=== PATIENT | female | born 1975 | race Caucasian/White ===

== ENCOUNTER 2018-01-09 20:14 | Emergency (ER) | payer MEDICAID ==
--- NOTE | 2018-01-09 20:47 | Emergency Department Record ---
History of Present Illness - General Chief Complaint: Abdominal Pain Stated Complaint: ABDOMINAL/BACK PAIN Time Seen by Provider: 01/09/18 20:43 Source: Patient Mode of Arrival: Wheelchair Limitations: No limitations - History of Present Illness Initial Comments: The patient is here due to abd pain for 5 days. The pain is in the L lower quad and is sharp, stabbing, and severe. She feels like she has to urinate or have a BM. The patient has had kidney stones similar to this in the past. The pain did get very severe this afternoon and now she is quite nauseated. There has been no hx of any fever, hematuria, or vaginal discharge. She has had a DWAYNE in the past. MD Complaint: Abdominal pain Onset/Timin -: Days(s) Location: Suprapubic, Other Radiation: Other Migration to: L Flank Severity scale (1-10): 10 Quality: Sharp Consistency: Constant, Getting worse Improves With: Nothing Worsens With: Bowel movement, Movement Context: Other Associated Symptoms: Chills, Diarrhea, Nausea, Vomiting - Related Data LMP (females 10-50): Unknown Patient : No Home Medications Medication Instructions Recorded Confirmed Last Taken Albuterol Sulfate [Proair Hfa] 1 - 2 puff IH .EVERY 4-6 HOURS PRN 01/09/1801/09 Unknown Citalopram Hydrobromide [Celexa] 20 mg PO DAILY 01/09/18 01/09/18 Unknown Diazepam 5 mg PO DAILY 01/09/18 01/09/18 Unknown Hydroxyzine HCl [Atarax] 25 mg PO ASDIR PRN 01/09/18 01/09/18 Unknown Lamotrigine [Lamictal] 100 mg PO DAILY 01/09/18 01/09/18 Unknown Trazodone HCl 50 mg PO QHS PRN 01/09/18 01/09/18 Unknown Previous Rx's Medication Instructions Recorded Hydrocodone/Acetaminophen [Neely 1 - 2 each PO .EVERY 4-6 HRS PRN 01/09/18 5-325 Tablet] #12 tablet Phenazopyridine HCl [Pyridium] 100 mg PO TID #6 tablet 01/09/18 Tamsulosin HCl [Flomax] 0.4 mg PO DAILY #7 cap.er.24h 01/09/18 Allergies Allergy/AdvReac Type Severity Reaction Status Date / Time ketorolac [From Toradol] Allergy HIVES Verified 01/09/18 22:13 promethazine HCl Allergy DIFFICULTY Verified 01/09/18 22:13 [From Phenergan] BREATHING Travel Screening - Travel/Exposure Within Last 30 Days Have you traveled within the last 30 days?: No - Travel Symptoms Symptom Screening: Headache, Weakness, Diarrhea Review of Systems Constitutional: Denies: Chills, Fever Eyes: Denies: Eye discharge ENT: Denies: Congestion Respiratory: Denies: Cough, Dyspnea Cardiovascular: Denies: Arrhythmia Past Medical History - SOCIAL HISTORY Smoking Status: Current every day smoker Alcohol Use: None Drug Use: Heavy Drug Use Detail:: Marijuana - RESPIRATORY Hx Respiratory Disorders: Yes Hx Asthma: Yes - CARDIOVASCULAR Hx Cardio Disorders: No - NEURO Hx Neuro Disorders: Yes Hx Headaches: Yes - GI Hx GI Disorders: No - Hx Genitourinary Disorders: No - ENDOCRINE Hx Endocrine Disorders: No - MUSCULOSKELETAL Hx Musculoskeletal Disorders: No - PSYCH Hx Psych Problems: No - HEMATOLOGY/ONCOLOGY Hx Hematology/Oncology Disorders: No Family Medical History Any Significant Family History?: No Physical Exam - General General Appearance: Alert, Oriented x3, Cooperative, Moderate distress (due to AP.) - Head Head exam: Atraumatic, Normocephalic, Normal inspection - Eye Eye exam: Normal appearance, PERRL, EOMI - Neck Neck exam: Normal inspection, Full ROM. negative: Tenderness - Respiratory Respiratory exam: Normal lung sounds bilaterally. negative: Respiratory distress - Cardiovascular Cardiovascular Exam: Regular rate, Normal rhythm, Normal heart sounds - GI/Abdominal GI/Abdominal exam: Soft, Tenderness (There is significant LLQ tenderness.). negative: Rebound, Rigid - Extremities Extremities exam: Normal inspection, Full ROM, Normal capillary refill. negative: Tenderness - Neurological Neurological exam: Alert, Normal gait, Oriented X3. negative: Abnormal gait, Motor sensory deficit Course Vital Signs 01/09/18 20:26 Temperature 98.4 F Pulse Rate 107 H Respiratory 24 Rate Blood Pressure 147/119 Pulse Ox 97 - Reevaluation(s) Reevaluation #1: The patient is doing better at this time but is still having some significant pain. Her BP and HR are improved and she clearly is more comfortable. 01/09/18 21:53 Reevaluation #2: The patient is feeling a good bit better but is still having some pain. We will give a 3rd dose of pain medicine and re-asses her pain shortly after. The patient is still having some bladder spasms. 01/09/18 22:53 Reevaluation #3: The patient is doing MUCH better at this time. Her pain is 95% resolved and her abdomen is very soft and nontender. She is to F/U with her Urologist at [facility] this week. She also understands the need to return for any worsening symptoms. 01/09/18 23:23 Medical Decision Making - Data Complexity MDM Data: Labs Ordered and/or Reviewed, X-Ray Ordered and/or Reviewed - Lab Data Result diagrams: 01/09/18 20:30 01/09/18 20:30 - Radiology Data Radiology results: Report reviewed (CT: 2 mm L UVJ stone with mild hydro.) Disposition Disposition: Discharge Clinical Impression: Renal colic on left side Disposition: Home, Self-Care Condition: (2) Stable Instructions: Renal Colic (ED) Additional Instructions: Please take the Neely and Flomax as directed along with the pyridium. Please see a Urologist at [facility] this week. Please return to the ER for any worsening pain, fever, or vomiting. Prescriptions: Hydrocodone/Acetaminophen [Neely 5-325 Tablet] 1 - 2 each PO .EVERY 4-6 HRS PRN #12 tablet PRN Reason: Pain Phenazopyridine HCl [Pyridium] 100 mg PO TID #6 tablet Tamsulosin HCl [Flomax] 0.4 mg PO DAILY #7 cap.er.24h Forms: Patient Portal Access Time of Disposition: 23:26 Quality - Quality Measures Quality Measures: N/A - Blood Pressure Screening View Details: Yes Does Patient Have Any of the Following: No Blood Pressure Classification: Hypertensive Reading Systolic Measurement: 147 Diastolic Measurement: 119 Screening for High Blood Pressure: < First Hypertensive BP, F/U Documented > [ G8950] First Hypertensive Follow-up Interventions: Referral to alternative/primary care provider.
[2018-01-09] MEDS ORDERED: ONDANSETRON HCL IV 4 MG/2 ML VIAL IV ONE (20:50)
[2018-01-09] MEDS ORDERED: 0.9 % SODIUM CHLORIDE 1,000 ML BAG IV ONE (20:50)
[2018-01-09] MEDS ORDERED: LORAZEPAM 2 MG/ML VIAL IV ONE (20:50)
[2018-01-09] MEDS ORDERED: HYDROMORPHONE HCL 2 MG/ML VIAL IVP ONE ×3 (20:51→22:51)
[2018-01-09 21:01] LABS: BASO % 0.6 % (0-6); EOS % 2.6 % (0-6); GRAN % 45.7 % (47-80); HEMATOCRIT 42.7 % (35.0-47.0); HEMOGLOBIN 14.6 gm/dl (11.6-16.0); LYMPH % 43.1 % (16-45); MEAN CORPUSCULAR HEMOGLOBIN 30.4 pg (27-33); MEAN CORPUSCULAR HGB CONC 34.2 g/dl (32-36); PLATELET COUNT 414 K/uL (130-400); RED CELL DISTRIBUTION WIDTH 14.1 % (11.5-14.5); WHITE BLOOD COUNT W/O DIFF 10.6 K/uL (4.2-12.2)
[2018-01-09 21:11] LABS: BLOOD UREA NITROGEN 9 mg/dL (6-20); CREATININE 0.9 mg/dL (0.5-0.9); EST GLOMERULAR FILTRATION RATE > 60 mL/min
[2018-01-09 21:14] LABS: GLUCOSE,RANDOM 131 mg/dL (74-109)
[2018-01-09] MEDS ORDERED: POTASSIUM CHLORIDE 20 MEQ TABLET PO ONE (21:26)
[2018-01-09] MEDS ORDERED: KETOROLAC 30 MG/ML VIAL IVP ONE (21:34)
[2018-01-09 22:16] LABS: URINE APPEARANCE CLEAR; URINE BILIRUBIN SMALL (NEGATIVE); URINE BLOOD MODERATE (NEGATIVE); URINE COLOR YELLOW; URINE GLUCOSE (UA) NEGATIVE (NEGATIVE); URINE KETONE TRACE (NEGATIVE); URINE LEUKOCYTE ESTERASE NEGATIVE (NEGATIVE); URINE NITRITE NEGATIVE (NEGATIVE); URINE UROBILINOGEN 0.2 E.U./dL (0.20 - 1.00)
[2018-01-09 22:22] LABS: URINE BACTERIA NONE SEEN; URINE EPITHELIAL CELLS 0 - 2 (FEW); URINE MUCUS LIGHT; URINE WBC 0 - 2 (0-2/hpf)
[2018-01-09 22:23] LABS: AMPHETAMINE SCREEN URINE NOT DETECTED; BARBITURATE SCREEN URINE NOT DETECTED; BENZODIAZEPINE SCREEN URINE DETECTED; COCAINE SCREEN URINE NOT DETECTED; METHADONE SCREEN URINE NOT DETECTED; METHAMPHETAMINE SCREEN NOT DETECTED; OPIATE SCREEN URINE DETECTED; OXYCODONE SCREEN URINE NOT DETECTED; PHENCYCLIDINE SCREEN URINE NOT DETECTED; PROPOXYPHENE SCREEN URINE NOT DETECTED; THC SCREEN URINE DETECTED; TRICYCLIC ANTIDEPRESSANT SCRN NOT DETECTED
[2018-01-09] MEDS ORDERED: TAMSULOSIN HCL 0.4 MG CAP.ER.24H PO ONE (22:24)
[2018-01-09] MEDS ORDERED: PHENAZOPYRIDINE HCL 95 MG TABLET PO ONE (22:55)
[2018-01-09] MEDS ORDERED: HYDROCODONE/APAP 5/325MG TABLET PO ONE (23:22)
--- NOTE | 2018-01-11 16:12 | CT SCAN REPORT ---
EXAM: CT SCAN ABDOMEN/PELVIS WO CONTRAST HISTORY: LOWER ABDOMINAL PAIN AND LEFT FLANK PAIN. TECHNIQUE: Standard CT imaging of the abdomen and pelvis was performed in the axial plane without contrast. Additional coronal and sagittal reformatted images were also performed. COMPARISON: None. FINDINGS: The lung bases are clear. The liver parenchyma is normal. The gallbladder is surgically absent. The biliary tree is normal. The pancreas, spleen, and adrenal glands are normal. The aorta is normal in caliber. There is no retroperitoneal lymphadenopathy. There is a 2 mm calculus within the left ureterovesical junction resulting in mild hydronephrosis. The kidneys and ureters are otherwise normal. The large and small bowel loops are normal. There is no pneumoperitoneum or ascites. The uterus is surgically absent. The abdominal wall is unremarkable. There are no acute osseous abnormalities. IMPRESSION: A 2 MM CALCULUS WITHIN THE LEFT URETEROVESICAL JUNCTION RESULTING IN MILD HYDRONEPHROSIS. JOB NUMBER: [id number] MTDD
== END 2018-01-09 23:30 | disposition home or self-care (01) ==
LOC: ER 20:14
DX: N13.2 Hydronephrosis with renal and ureteral calculous obstruction (principal); R11.2 Nausea with vomiting, unspecified; R19.7 Diarrhea, unspecified; F17.210 Nicotine dependence, cigarettes, uncomplicated; Z87.442 Personal history of urinary calculi
CPT/HCPCS: 99284 ×2; 96376; 96374; 96375; 96361; 85025; 80048; 81001; 80305; 74176; J2405; J1170; J2060; J7030

== ENCOUNTER 2018-08-09 13:18 | Emergency (ER) | payer BC, MEDICAID ==
--- NOTE | 2018-08-09 13:48 | Emergency Department Record ---
History of Present Illness - General Chief complaint: Extremity Problem Stated complaint: LT ARM PAIN SWELLING Time Seen by Provider: 08/09/18 13:36 Source: Patient Mode of Arrival: Ambulatory Limitations: No limitations - History of Present Illness Initial comments: pt fell osolitario lastpm. Onset/Timin -: Hour(s) Location: Left, Arm History of Same: No Severity scale (1-10): 8 Quality: Sharp Consistency: Constant, Getting worse Improves with: Immobilization Worsens with: Exertion, Palpation - Related Data Home Medications Medication Instructions Recorded Confirmed Last Taken Duloxetine HCl [Cymbalta] 20 mg PO ASDIR 08/09/18 08/09/18 Unknown Previous Rx's Medication Instructions Recorded Hydrocodone/Acetaminophen [[place] 1 each PO Q6HR #10 tablet 08/09/18 5-325 Tablet] Allergies Allergy/AdvReac Type Severity Reaction Status Date / Time ketorolac [From Toradol] Allergy HIVES Verified 08/09/18 13:24 promethazine HCl Allergy DIFFICULTY Verified 08/09/18 13:24 [From Phenergan] BREATHING Travel Screening - Travel/Exposure Within Last 30 Days Have you traveled within the last 30 days?: No - Travel/Exposure Within Last Year Have you traveled outside the [place] in the last year?: No - Additonal Travel Details Have you been exposed to anyone with a communicable illness?: No - Travel Symptoms Symptom Screening: None Review of Systems Reviewed: No additional complaints except as noted below Constitutional: Reports: As per HPI. Denies: Chills, Fever, Malaise, Night sweats, Weakness, Weight change Eyes: Reports: As per HPI. Denies: Eye discharge, Eye pain, Photophobia, Vision change ENT: Reports: As per HPI. Denies: Congestion, Dental pain, Ear pain, Epistaxis , Hearing loss, Throat pain Respiratory: Reports: As per HPI. Denies: Cough, Dyspnea, Hemoptysis, Stridor, Wheezes Cardiovascular: Reports: As per HPI. Denies: Arrhythmia, Chest pain, Dyspnea on exertion, Edema, Murmurs, Orthopnea, Palpitations, Paroxysmal nocturnal dyspnea, Rheumatic Fever, Syncope Endocrine: Reports: As per HPI. Denies: Fatigue, Heat or cold intolerance, Polydipsia, Polyuria Gastrointestinal: Reports: As per HPI. Denies: Abdominal pain, Constipation, Diarrhea, Hematemesis, Hematochezia, Melena, Nausea, Vomiting Genitourinary: Reports: As per HPI. Denies: Abnormal menses, Discharge, Dyspareunia, Dysuria, Frequency, Hematuria, Incontinence, Retention, Urgency Musculoskeletal: Reports: As per HPI. Denies: Arthralgia, Back pain, Gout, Joint swelling, Myalgia, Neck pain Skin: Reports: As per HPI. Denies: Bruising, Change in color, Change in hair/ nails, Lesions, Pruritus, Rash Neurological: Reports: As per HPI. Denies: Abnormal gait, Confusion, Headache, Numbness, Paresthesias, Seizure, Tingling, Tremors, Vertigo, Weakness Psychiatric: Reports: As per HPI. Denies: Anxiety, Auditory hallucinations, Depression, Homicidal thoughts, Suicidal thoughts, Visual hallucinations Hematological/Lymphatic: Reports: As per HPI. Denies: Anemia, Blood Clots, Easy bleeding, Easy bruising, Swollen glands Past Medical History - SOCIAL HISTORY Smoking Status: Current every day smoker Alcohol Use: Rare Drug Use: Occasional Drug Use Detail:: Marijuana - RESPIRATORY Hx Respiratory Disorders: Yes Hx Asthma: Yes - CARDIOVASCULAR Hx Cardio Disorders: No - NEURO Hx Neuro Disorders: Yes Hx Headaches: Yes - GI Hx GI Disorders: No Hx Celiac Disease: Yes Hx Reflux: Yes - Hx Genitourinary Disorders: No Hx Kidney Stones: Yes Comment:: renal stent placed and removed - ENDOCRINE Hx Endocrine Disorders: No - MUSCULOSKELETAL Hx Musculoskeletal Disorders: No - PSYCH Hx Psych Problems: No Hx Anxiety: Yes Hx Depression: Yes - HEMATOLOGY/ONCOLOGY Hx Hematology/Oncology Disorders: No Family Medical History Any Significant Family History?: Yes Hx Resp Disorders: Mother Physical Exam - General General Appearance: Alert, Oriented x3, Cooperative, No acute distress - Head Head exam: Normal inspection - Eye Eye exam: Normal appearance, PERRL, EOMI Pupils: Normal accommodation - ENT ENT exam: Normal exam, Mucous membranes moist, Normal external ear exam, Normal orophraynx, TM's normal bilaterally Ear exam: Normal external inspection. negative: External canal tenderness Nasal Exam: Normal inspection. negative: Discharge, Sinus tenderness Mouth exam: Normal external inspection, Tongue normal Teeth exam: Normal inspection. negative: Dental caries Throat exam: Normal inspection. negative: Tonsillar erythema, Tonsillar exudate - Neck Neck exam: Normal inspection, Full ROM. negative: Tenderness - Respiratory Respiratory exam: Normal lung sounds bilaterally. negative: Respiratory distress - Cardiovascular Cardiovascular Exam: Regular rate, Normal rhythm, Normal heart sounds - GI/Abdominal GI/Abdominal exam: Soft, Normal bowel sounds. negative: Tenderness - Rectal Rectal exam: Deferred - exam: Deferred - Extremities Extremities exam: Normal capillary refill, Tenderness, Other (snuffbox tenderness). negative: Normal inspection, Full ROM - Back Back exam: Reports: Normal inspection, Full ROM. Denies: Muscle spasm, Rash noted, Tenderness - Neurological Neurological exam: Alert, CN II-XII intact, Normal gait, Oriented X3 - Psychiatric Psychiatric exam: Normal affect, Normal mood - Skin Skin exam: Dry, Intact, Normal color, Warm Course Vital Signs 08/09/18 13:27 Temperature 97.9 F Pulse Rate 87 Respiratory 18 Rate Blood Pressure 121/87 Pulse Ox 97 Disposition Disposition: Discharge Clinical Impression: Radius distal fracture Qualifiers: Encounter type: initial encounter Fracture type: closed Fracture morphology: unspecified fracture morphology Laterality: left Qualified Code(s): S52.502A - Unspecified fracture of the lower end of left radius, initial encounter for closed fracture Disposition: Home, Self-Care Condition: (1) Good Instructions: Arm Fracture in Adults (ED) Additional Instructions: follow up with dr mendoza. return sooner if worse. ice and elevate Prescriptions: Hydrocodone/Acetaminophen [[place] 5-325 Tablet] 1 each PO Q6HR #10 tablet Referrals: RAJWINDER MENDOZA [DOCTOR OF OSTEOPATH] - [facility] [Provider Group] Forms: Patient Portal Access Quality - Quality Measures Quality Measures: N/A - Blood Pressure Screening Does Patient Have Any of the Following: No Blood Pressure Classification: Pre-Hypertensive BP Reading Systolic Measurement: 121 Diastolic Measurement: 87 Screening for High Blood Pressure: < Pre-Hypertensive BP, F/U Documented > [ G8950] Pre-Hypertensive Follow-up Interventions: Follow-up with rescreen every year.
[2018-08-09] MEDS ORDERED: HYDROCODONE/APAP 5/325MG TABLET PO ONE (14:33)
--- NOTE | 2018-08-10 12:18 | RADIOLOGY REPORT ---
EXAM: LEFT WRIST HISTORY: FALL, WRIST PAIN. TECHNIQUE: Four views of the left wrist were obtained. Comparison: None. FINDINGS: Subtle transverse lucency extending through the radial metaphysis, best seen on oblique and navicular views. No additional acute fracture is seen. Carpal bone alignment appears maintained. Mild arthrosis at the thumb carpal metacarpal joint. IMPRESSION: SUGGESTION OF AN ACUTE NONDISPLACED FRACTURE OF THE DISTAL RADIAL METAPHYSIS. JOB NUMBER: [id number] MTDD
== END 2018-08-09 15:05 | disposition home or self-care (01) ==
LOC: ER 13:18
DX: S52.502A Unspecified fracture of the lower end of left radius, initial encounter for closed fracture (principal); W19.XXXA Unspecified fall, initial encounter; F17.210 Nicotine dependence, cigarettes, uncomplicated
CPT/HCPCS: 99283

== ENCOUNTER 2018-10-24 06:42 | Emergency (ER) | payer MEDICAID ==
[2018-10-24 07:21] LABS: ABSOLUTE NEUTROPHIL COUNT 13.23; BASO % 0.4 % (0-6); EOS % 1.8 % (0-6); GRAN % 74.9 % (47-80); HEMATOCRIT 44.8 % (35.0-47.0); MEAN CELL VOLUME 88.2 fl (81-97); MEAN CORPUSCULAR HEMOGLOBIN 29.5 pg (27-33); MEAN CORPUSCULAR HGB CONC 33.5 g/dl (32-36); MEAN PLATELET VOLUME 10.2 fl (7.4-10.4); MONO % 6.9 % (0-9); PLATELET COUNT 445 K/uL (130-400); RED BLOOD COUNT 5.08 M/uL (3.80-5.40); RED CELL DISTRIBUTION WIDTH 13.9 % (11.5-14.5); WHITE BLOOD COUNT W/O DIFF 17.6 K/uL (4.2-12.2)
[2018-10-24] MEDS: LORAZEPAM 2 MG/ML VIAL IV ONE (07:22)
[2018-10-24] MEDS: 0.9 % SODIUM CHLORIDE 1,000 ML BAG IV ONE ×2 (07:23→07:43)
--- NOTE | 2018-10-24 07:23 | Emergency Department Record ---
Anxiety - General Chief Complaint: Anxiety Stated Complaint: MEDICATION REACTION Time Seen by Provider: 10/24/18 06:46 Source: Patient, Family Mode of Arrival: Ambulatory Limitations: No limitations - History of Present Illness Initial Comments: The patient is here due to anxiety and medication withdrawal. She has a long hx of anxiety and has been taking Valium for about a year. About 2 weeks ago she was having a prolonged anxiety attack and with to [facility] ER 11 days ago. She was treated with IV Ativan and due to doing better she was discharged on the Ativan orally at 2 mg a dose and had her Valium stopped. She also had her Cymbalta lowered. The patient then did see her PCP last week and had the Ativan lowered to 1 mg per dose. The patient did not like the way the Ativan made her feel so she stopped it 2 days ago. Yesterday she developed worsening anxiety, nausea, palpitations and vomiting. Due to the symptoms persisting she came to the ER here for evaluation. The patient does have an appointment with her PCP at 3:00 today. MD Complaint: Anxiety, Heart racing Onset/Timin -: Days(s) Place: Home Previous History of Same: Yes Quality: Intermittant - Related Data Home Medications: Home Medications Medication Instructions Recorded Confirmed Last Taken Fluticasone/Vilanterol [Breo 1 puff INH DAILY 10/24/18 10/24/18 Unknown Ellipta 200-25 Mcg INH] Allergies/Adverse Reactions: Allergies Allergy/AdvReac Type Severity Reaction Status Date / Time ketorolac [From Toradol] Allergy HIVES Verified 08/09/18 13:24 promethazine HCl Allergy DIFFICULTY Verified 08/09/18 13:24 [From Phenergan] BREATHING Travel Screening - Travel/Exposure Within Last 30 Days Have you traveled within the last 30 days?: No - Travel/Exposure Within Last Year Have you traveled outside the [place] in the last year?: No - Additonal Travel Details Have you been exposed to anyone with a communicable illness?: No - Travel Symptoms Symptom Screening: None Review of Systems Constitutional: Denies: Chills, Fever Eyes: Denies: Eye discharge ENT: Denies: Congestion Respiratory: Denies: Cough Cardiovascular: Reports: Palpitations. Denies: Arrhythmia, Chest pain Endocrine: Denies: Fatigue Gastrointestinal: Denies: Nausea Genitourinary: Denies: Dysuria Musculoskeletal: Denies: Arthralgia Skin: Denies: Bruising Past Medical History - SOCIAL HISTORY Smoking Status: Current every day smoker Alcohol Use: None Drug Use: Heavy - RESPIRATORY Hx Respiratory Disorders: Yes Hx Asthma: Yes - CARDIOVASCULAR Hx Cardio Disorders: No - NEURO Hx Neuro Disorders: Yes Hx Headaches: Yes - GI Hx GI Disorders: No Hx Celiac Disease: Yes Hx Reflux: Yes - Hx Genitourinary Disorders: No Hx Kidney Stones: Yes Comment:: renal stent placed and removed - ENDOCRINE Hx Endocrine Disorders: No - MUSCULOSKELETAL Hx Musculoskeletal Disorders: No - PSYCH Hx Psych Problems: No Hx Anxiety: Yes Hx Depression: Yes - HEMATOLOGY/ONCOLOGY Hx Hematology/Oncology Disorders: No Family Medical History Any Significant Family History?: Yes Hx Resp Disorders: Mother Physical Exam - General General Appearance: Alert, Oriented x3, Cooperative, Mild distress (due to anxeity.) - Head Head exam: Atraumatic, Normocephalic - Eye Eye exam: Normal appearance, PERRL - ENT Throat exam: Normal inspection. negative: Tonsillar erythema, Tonsillar exudate - Neck Neck exam: Normal inspection, Full ROM. negative: Tenderness - Respiratory Respiratory exam: Normal lung sounds bilaterally. negative: Respiratory distress - Cardiovascular Cardiovascular Exam: Regular rate, Normal rhythm, Normal heart sounds, Tachycardia - GI/Abdominal GI/Abdominal exam: Soft, Normal bowel sounds. negative: Tenderness - Extremities Extremities exam: Normal inspection, Full ROM, Normal capillary refill. nega tive: Tenderness - Back Back exam: Reports: Normal inspection - Neurological Neurological exam: Alert, Normal gait. negative: Abnormal gait, Motor sensory deficit - Psychiatric Psychiatric exam: Anxious - Skin Skin exam: negative: Rash Course Vital Signs 10/24/18 10/24/18 06:47 07:09 Temperature 97.9 F Pulse Rate [ 116 H Pulse Ox Probe] Respiratory 32 H Rate Blood Pressure 137/102 [Left Arm] Pulse Ox 97 - Reevaluation(s) Reevaluation #1: The patient is doing better at this time. Her nausea is gone but she is still shaking at times and still feels mildly anxious. 10/24/18 07:41 Reevaluation #2: The patient is doing a lot better at this time. Her anxiety is much improved and she is no longer nauseated or shaking. Her vital signs are also a lot better. 10/24/18 08:20 Reevaluation #3: The patient is doing a lot better at this time. She is resting comfortably with normal vital signs and drinking water with no difficulty. Her shaking and anxiety have resolved and she is no longer restless. We will discuss the issues with her PCP and will encourage her to keep her appointment for today. 10/24/18 09:18 Reevaluation #4: I did discuss the case with Dr. Sanchez who will see the patient today as planned. He also agrees with the plan for discharge. The patient is doing much better at this time and is drinking water, no longer anxious or agitated and has normal vital signs. She clearly appears stable for discharge. 10/24/18 09:28 Medical Decision Making - Data Complexity MDM Data: Labs Ordered and/or Reviewed, EKG Ordered and/or Reviewed - Lab Data Result diagrams: 10/24/18 06:50 10/24/18 06:50 - EKG Data -: EKG Interpreted by Me EKG: No Acute Changes, Normal EKG (Normal QTc.) Disposition Disposition: Discharge Clinical Impression: Benzodiazepine withdrawal Qualifiers: Complication of substance-induced condition: uncomplicated Qualified Code(s): F13.230 - Sedative, hypnotic or anxiolytic dependence with withdrawal, uncomplicated Disposition: Home, Self-Care Condition: (2) Stable Instructions: Social Anxiety Disorder (ED) Additional Instructions: Please restart the valium and continue your other medicines. Please see your family doctor today at 3pm as planned and return to the ER for any worsening symptoms. Forms: Patient Portal Access Time of Disposition: 09:27 Quality - Quality Measures Quality Measures: N/A - Blood Pressure Screening View Details: Yes Does Patient Have Any of the Following: No Blood Pressure Classification: Pre-Hypertensive BP Reading Systolic Measurement: 111 Diastolic Measurement: 82 Screening for High Blood Pressure: < Pre-Hypertensive BP, F/U Documented > [G8950] Pre-Hypertensive Follow-up Interventions: Referral to alternative/primary care provider.
[2018-10-24 07:26] LABS: BARBITURATE SCREEN URINE DETECTED; BENZODIAZEPINE SCREEN URINE DETECTED; THC SCREEN URINE DETECTED; TRICYCLIC ANTIDEPRESSANT SCRN DETECTED
[2018-10-24 07:27] LABS: AMPHETAMINE SCREEN URINE NOT DETECTED; COCAINE SCREEN URINE NOT DETECTED; METHADONE SCREEN URINE NOT DETECTED; METHAMPHETAMINE SCREEN NOT DETECTED; OPIATE SCREEN URINE NOT DETECTED; OXYCODONE SCREEN URINE NOT DETECTED; PHENCYCLIDINE SCREEN URINE NOT DETECTED; PROPOXYPHENE SCREEN URINE NOT DETECTED
[2018-10-24 07:29] LABS: URINE BILIRUBIN MODERATE (NEGATIVE); URINE BLOOD NEGATIVE (NEGATIVE); URINE COLOR YELLOW; URINE GLUCOSE (UA) NEGATIVE (NEGATIVE); URINE LEUKOCYTE ESTERASE SMALL (NEGATIVE); URINE NITRITE NEGATIVE (NEGATIVE)
[2018-10-24] MEDS: ONDANSETRON HCL IV 4 MG/2 ML VIAL IVP ONE (07:33)
[2018-10-24 07:36] LABS: BLOOD UREA NITROGEN 12 mg/dL (6-20)
[2018-10-24 07:37] LABS: EST GLOMERULAR FILTRATION RATE > 60 mL/min; TOTAL PROTEIN 8.2 g/dL (6.6-8.7)
[2018-10-24 07:39] LABS: GLUCOSE,RANDOM 144 mg/dL (74-109); URINE APPEARANCE SL CLOUDY; URINE KETONE 80 mg/dL (NEGATIVE)
[2018-10-24 07:42] LABS: ALB/GLOB RATIO 1.4 (1.1-1.8); ALBUMIN 4.8 g/dL (4.0-5.0); ALKALINE PHOSPHATASE 118 U/L (35-104); ALT/SGPT 7 U/L (<33); AST/SGOT 12 U/L (10.0-35.0); URINE BACTERIA 1+; URINE EPITHELIAL CELLS 36 - 50 (FEW); URINE MUCUS HEAVY; URINE RBC 0 - 2 (NONE SEEN)
[2018-10-24] MEDS: DIAZEPAM (VALIUM) 5MG/ML **10ML VIAL IVP ONE ×2 (07:43→08:18)
[2018-10-24] MEDS: DIAZEPAM 5 MG TABLET PO ONE (09:33)
== END 2018-10-24 09:37 | disposition home or self-care (01) ==
LOC: ER 06:42
DX: F13.230 Sedative, hypnotic or anxiolytic dependence with withdrawal, uncomplicated (principal); F41.9 Anxiety disorder, unspecified; R11.2 Nausea with vomiting, unspecified; F17.210 Nicotine dependence, cigarettes, uncomplicated
CPT/HCPCS: 80053; 80305; 81001; 84703; 85025; 93005; 93010; 96374; 96375; 96376; 99284; J2405; J3360; J7030